=== PATIENT | male | born 1940 | race Caucasian/White ===

== ENCOUNTER 2023-06-29 10:01 | Inpatient (IN) | payer MEDICARE, OTHER ==
[2023-06-29] MEDS ORDERED: Acetaminophen 325 MG TAB PO PRN (17:16)
[2023-06-29] MEDS ORDERED: Ondansetron ODT 4 MG TAB SL PRN (17:16)
[2023-06-29] MEDS: Vancomycin HCl 125 MG Capsule PO SCH (18:28)
[2023-06-29] MEDS: Saccharomyces boulardii 250 MG CAP PO SCH (18:28)
[2023-06-29] MEDS: DorzolamidE/Timolol 2%/0.5% Ophth Soln 10 ml Bottle EA EYE SCH (21:28)
[2023-06-29] MEDS: Potassium Chloride 20 MEQ TAB PO SCH (21:28)
[2023-06-29] MEDS: Famotidine 20 MG TAB PO SCH (21:28)
[2023-06-29] MEDS: Atorvastatin Calcium 20 MG TAB PO SCH (21:28)
[2023-06-30] MEDS: Vancomycin HCl 125 MG Capsule PO SCH ×5 (00:01→23:54)
[2023-06-30] MEDS: Levothyroxine Sodium 75 MCG TAB PO SCH (05:18)
[2023-06-30 06:10] LABS: Glucose 89 mg/dL (83-110)
[2023-06-30 06:12] LABS: #Basophils 0.1 thou/uL (0.0-0.2); #Eosinphils 0.8 thou/uL (0.0-0.7); #Lymphocytes 2.4 thou/uL (1.20-3.40); #Neutrophils 4.4 thou/uL (1.40-6.50); %Basophils 0.8 % (0.0-1.0); %Eosinophils 9.2 % (0.0-10.0); %Lymphocytes 27.9 % (21.0-51.0); %Neutrophils 51.1 % (42.0-75.0); ALT (SGPT) 38 U/L (8-55); AST (SGOT) 24 U/L (5-34); Albumin 3.4 g/dL (3.4-4.8); Alkaline Phosphatase 72 U/L (40-110); Anion Gap 12 mmol/L (10-20); BUN (Urea Nitrogen) 19 mg/dL (8.4-25.7); Bilirubin, Total 0.2 mg/dL (0.2-1.2); Calc. Creatinine Clearance 53 mL/min (70-130); Calcium 9.2 mg/dL (7.8-10.44); Carbon Dioxide 22 mmol/L (23-31); Chloride 105 mmol/L (98-107); Estimated GFR 56; Globulin 3.3 g/dL (2.4-3.5); Hematocrit 40.1 % (42.0-52.0); Hemoglobin 13.1 g/dL (14.0-18.0); Mean Corpuscular HGB CONC 32.6 g/dL (32.0-36.0); Mean Corpuscular Hemoglobin 27.9 pg (27.0-31.0); Mean Corpuscular Volume 85.5 fl (78.0-98.0); Platelet Count 249 10x3/uL (130-400); Protein, Total 6.7 g/dL (5.8-8.1); RBC Distribution Width 13.5 % (11.5-14.5); Red Blood Cell (RBC) Count 4.69 mill/uL (4.70-6.10); Sodium 135 mmol/L (136-145); White Blood Cell (WBC) Count 8.6 10x3/uL (4.8-10.8)
[2023-06-30] MEDS: DorzolamidE/Timolol 2%/0.5% Ophth Soln 10 ml Bottle EA EYE SCH ×2 (07:56→20:45)
[2023-06-30] MEDS: Donepezil HCl 10 MG TAB PO SCH (07:56)
[2023-06-30] MEDS: Cholecalciferol 1,000 UNITS (25 MCG) TAB PO SCH (07:56)
[2023-06-30] MEDS: Enoxaparin 40 MG (0.4 mL) SYRINGE SC SCH (07:56)
[2023-06-30] MEDS: Sertraline 100 MG TAB PO SCH (07:57)
[2023-06-30] MEDS: Potassium Chloride 20 MEQ TAB PO SCH ×2 (07:57→20:44)
[2023-06-30] MEDS: Amlodipine 10 MG TAB PO SCH (07:57)
[2023-06-30] MEDS: Aspirin 81 mg Enteric Coated Tablet PO SCH (07:57)
[2023-06-30] MEDS: Losartan 25 MG TAB PO SCH (07:57)
[2023-06-30] MEDS: LevoFLOXacin 500 MG TAB PO SCH (07:58)
[2023-06-30] MEDS: Famotidine 20 MG TAB PO SCH ×2 (07:58→20:44)
[2023-06-30] MEDS: Saccharomyces boulardii 250 MG CAP PO SCH (17:10)
[2023-06-30] MEDS: Atorvastatin Calcium 20 MG TAB PO SCH (20:44)
[2023-07-01] MEDS: Vancomycin HCl 125 MG Capsule PO SCH ×3 (05:18→16:58)
[2023-07-01] MEDS: Levothyroxine Sodium 75 MCG TAB PO SCH (05:18)
[2023-07-01] MEDS: Cholecalciferol 1,000 UNITS (25 MCG) TAB PO SCH (09:01)
[2023-07-01] MEDS: Enoxaparin 40 MG (0.4 mL) SYRINGE SC SCH (09:01)
[2023-07-01] MEDS: Losartan 25 MG TAB PO SCH (09:02)
[2023-07-01] MEDS: Amlodipine 10 MG TAB PO SCH (09:02)
[2023-07-01] MEDS: LevoFLOXacin 500 MG TAB PO SCH (09:02)
[2023-07-01] MEDS: Aspirin 81 mg Enteric Coated Tablet PO SCH (09:02)
[2023-07-01] MEDS: Famotidine 20 MG TAB PO SCH ×2 (09:02→20:53)
[2023-07-01] MEDS: Donepezil HCl 10 MG TAB PO SCH (09:02)
[2023-07-01] MEDS: DorzolamidE/Timolol 2%/0.5% Ophth Soln 10 ml Bottle EA EYE SCH ×2 (09:03→20:53)
[2023-07-01] MEDS: Potassium Chloride 20 MEQ TAB PO SCH ×2 (09:03→20:53)
[2023-07-01] MEDS: Sertraline 100 MG TAB PO SCH (09:03)
[2023-07-01] MEDS: Saccharomyces boulardii 250 MG CAP PO SCH (16:58)
[2023-07-01] MEDS: Atorvastatin Calcium 20 MG TAB PO SCH (20:53)
[2023-07-02] MEDS: Vancomycin HCl 125 MG Capsule PO SCH ×5 (00:15→23:24)
[2023-07-02] MEDS: Levothyroxine Sodium 75 MCG TAB PO SCH (05:23)
[2023-07-02] MEDS: Enoxaparin 40 MG (0.4 mL) SYRINGE SC SCH (09:12)
[2023-07-02] MEDS: Losartan 25 MG TAB PO SCH (09:13)
[2023-07-02] MEDS: Famotidine 20 MG TAB PO SCH ×2 (09:13→20:53)
[2023-07-02] MEDS: Amlodipine 10 MG TAB PO SCH (09:13)
[2023-07-02] MEDS: Cholecalciferol 1,000 UNITS (25 MCG) TAB PO SCH (09:13)
[2023-07-02] MEDS: Aspirin 81 mg Enteric Coated Tablet PO SCH (09:13)
[2023-07-02] MEDS: LevoFLOXacin 500 MG TAB PO SCH (09:13)
[2023-07-02] MEDS: Sertraline 100 MG TAB PO SCH (09:13)
[2023-07-02] MEDS: Donepezil HCl 10 MG TAB PO SCH (09:13)
[2023-07-02] MEDS: Potassium Chloride 20 MEQ TAB PO SCH ×2 (09:14→20:53)
[2023-07-02] MEDS: DorzolamidE/Timolol 2%/0.5% Ophth Soln 10 ml Bottle EA EYE SCH ×2 (09:14→20:53)
[2023-07-02] MEDS: Saccharomyces boulardii 250 MG CAP PO SCH (17:31)
[2023-07-02] MEDS: Atorvastatin Calcium 20 MG TAB PO SCH (20:56)
[2023-07-03 04:16] VITALS: BMI 28.7
[2023-07-03] MEDS: Levothyroxine Sodium 75 MCG TAB PO SCH (05:11)
[2023-07-03] MEDS: Losartan 25 MG TAB PO SCH (08:30)
[2023-07-03] MEDS: Enoxaparin 40 MG (0.4 mL) SYRINGE SC SCH (09:00)
[2023-07-03] MEDS: Cholecalciferol 1,000 UNITS (25 MCG) TAB PO SCH (09:02)
[2023-07-03] MEDS: Potassium Chloride 20 MEQ TAB PO SCH ×2 (09:02→21:12)
[2023-07-03] MEDS: Famotidine 20 MG TAB PO SCH ×2 (09:04→21:12)
[2023-07-03] MEDS: Aspirin 81 mg Enteric Coated Tablet PO SCH (09:04)
[2023-07-03] MEDS: Sertraline 100 MG TAB PO SCH (09:04)
[2023-07-03] MEDS: Donepezil HCl 10 MG TAB PO SCH (09:04)
[2023-07-03] MEDS: Vancomycin HCl 125 MG Capsule PO SCH ×2 (09:04→21:13)
[2023-07-03] MEDS: DorzolamidE/Timolol 2%/0.5% Ophth Soln 10 ml Bottle EA EYE SCH ×2 (09:05→21:15)
[2023-07-03] MEDS: Amlodipine 10 MG TAB PO SCH (09:09)
[2023-07-03] MEDS: Saccharomyces boulardii 250 MG CAP PO SCH (17:43)
[2023-07-03] MEDS: Atorvastatin Calcium 20 MG TAB PO SCH (21:14)
[2023-07-04] MEDS: Levothyroxine Sodium 75 MCG TAB PO SCH (06:21)
[2023-07-04] MEDS: Cholecalciferol 1,000 UNITS (25 MCG) TAB PO SCH (08:29)
[2023-07-04] MEDS: Losartan 25 MG TAB PO SCH (08:29)
[2023-07-04] MEDS: Sertraline 100 MG TAB PO SCH (08:29)
[2023-07-04] MEDS: Amlodipine 10 MG TAB PO SCH (08:29)
[2023-07-04] MEDS: Potassium Chloride 20 MEQ TAB PO SCH ×2 (08:29→20:41)
[2023-07-04] MEDS: Enoxaparin 40 MG (0.4 mL) SYRINGE SC SCH (08:29)
[2023-07-04] MEDS: DorzolamidE/Timolol 2%/0.5% Ophth Soln 10 ml Bottle EA EYE SCH ×2 (08:29→20:41)
[2023-07-04] MEDS: Donepezil HCl 10 MG TAB PO SCH (08:29)
[2023-07-04] MEDS: Vancomycin HCl 125 MG Capsule PO SCH ×2 (08:30→20:40)
[2023-07-04] MEDS: Aspirin 81 mg Enteric Coated Tablet PO SCH (08:30)
[2023-07-04] MEDS: Famotidine 20 MG TAB PO SCH ×2 (08:30→20:40)
[2023-07-04] MEDS: Saccharomyces boulardii 250 MG CAP PO SCH (17:12)
[2023-07-04] MEDS: Atorvastatin Calcium 20 MG TAB PO SCH (20:40)
[2023-07-05 06:00] LABS: #Lymphocytes 2.7 thou/uL (1.20-3.40); #Monocytes 0.8 thou/uL (0.11-0.59); #Neutrophils 6.5 thou/uL (1.40-6.50); %Basophils 0.4 % (0.0-1.0); %Lymphocytes 24.5 % (21.0-51.0); %Neutrophils 59.1 % (42.0-75.0); Hematocrit 39.5 % (42.0-52.0); Hemoglobin 12.8 g/dL (14.0-18.0); Mean Corpuscular HGB CONC 32.4 g/dL (32.0-36.0); Mean Corpuscular Hemoglobin 27.8 pg (27.0-31.0); Mean Corpuscular Volume 85.9 fl (78.0-98.0); Mean Platelet Volume 7.1 fL (7.4-10.4); Platelet Count 245 10x3/uL (130-400); RBC Distribution Width 13.8 % (11.5-14.5)
[2023-07-05 06:55] LABS: Chloride 107 mmol/L (98-107); Potassium 4.1 mmol/L (3.5-5.1); Sodium 135 mmol/L (136-145)
[2023-07-05 06:56] LABS: BUN (Urea Nitrogen) 22 mg/dL (8.4-25.7); Carbon Dioxide 20 mmol/L (23-31)
[2023-07-05 06:57] LABS: Calc. Creatinine Clearance 60 mL/min (70-130); Calcium 9.2 mg/dL (7.6-10.4); Estimated GFR 62; Glucose 88 mg/dL (83-110)
[2023-07-05 06:58] LABS: Anion Gap 12 mmol/L (10-20)
[2023-07-05] MEDS: Amlodipine 10 MG TAB PO SCH (16:51)
[2023-07-05] MEDS: Aspirin 81 mg Enteric Coated Tablet PO SCH (16:52)
[2023-07-05] MEDS: DorzolamidE/Timolol 2%/0.5% Ophth Soln 10 ml Bottle EA EYE SCH ×2 (16:53→20:40)
[2023-07-05] MEDS: Cholecalciferol 1,000 UNITS (25 MCG) TAB PO SCH (16:53)
[2023-07-05] MEDS: Donepezil HCl 10 MG TAB PO SCH (16:53)
[2023-07-05] MEDS: Enoxaparin 40 MG (0.4 mL) SYRINGE SC SCH (16:54)
[2023-07-05] MEDS: Famotidine 20 MG TAB PO SCH ×2 (16:54→20:40)
[2023-07-05] MEDS: Losartan 25 MG TAB PO SCH (16:56)
[2023-07-05] MEDS: Sertraline 100 MG TAB PO SCH (16:56)
[2023-07-05] MEDS: Potassium Chloride 20 MEQ TAB PO SCH ×2 (16:56→20:40)
[2023-07-05] MEDS: Vancomycin HCl 125 MG Capsule PO SCH ×2 (16:57→20:40)
[2023-07-05] MEDS: Saccharomyces boulardii 250 MG CAP PO SCH (17:36)
[2023-07-05] MEDS: Levothyroxine Sodium 75 MCG TAB PO SCH (19:34)
[2023-07-05] MEDS: Atorvastatin Calcium 20 MG TAB PO SCH (20:39)
[2023-07-06] MEDS: Levothyroxine Sodium 75 MCG TAB PO SCH (05:16)
[2023-07-06] MEDS: Donepezil HCl 10 MG TAB PO SCH (09:13)
[2023-07-06] MEDS: Potassium Chloride 20 MEQ TAB PO SCH ×2 (09:13→20:05)
[2023-07-06] MEDS: Cholecalciferol 1,000 UNITS (25 MCG) TAB PO SCH (09:13)
[2023-07-06] MEDS: Losartan 25 MG TAB PO SCH (09:13)
[2023-07-06] MEDS: Aspirin 81 mg Enteric Coated Tablet PO SCH (09:14)
[2023-07-06] MEDS: Amlodipine 10 MG TAB PO SCH (09:14)
[2023-07-06] MEDS: Sertraline 100 MG TAB PO SCH (09:14)
[2023-07-06] MEDS: Famotidine 20 MG TAB PO SCH ×2 (09:14→20:05)
[2023-07-06] MEDS: Enoxaparin 40 MG (0.4 mL) SYRINGE SC SCH (09:14)
[2023-07-06] MEDS: Vancomycin HCl 125 MG Capsule PO SCH ×2 (09:14→20:05)
[2023-07-06] MEDS: DorzolamidE/Timolol 2%/0.5% Ophth Soln 10 ml Bottle EA EYE SCH ×2 (09:29→20:12)
[2023-07-06] MEDS: Saccharomyces boulardii 250 MG CAP PO SCH (17:02)
[2023-07-06] MEDS: Atorvastatin Calcium 20 MG TAB PO SCH (20:07)
[2023-07-07] MEDS: Levothyroxine Sodium 75 MCG TAB PO SCH (05:57)
[2023-07-07] MEDS: Enoxaparin 40 MG (0.4 mL) SYRINGE SC SCH (08:40)
[2023-07-07] MEDS: Aspirin 81 mg Enteric Coated Tablet PO SCH (08:41)
[2023-07-07] MEDS: Sertraline 100 MG TAB PO SCH (08:41)
[2023-07-07] MEDS: Hydrochlorothiazide 25 MG TAB PO SCH (08:41)
[2023-07-07] MEDS: Losartan 25 MG TAB PO SCH (08:42)
[2023-07-07] MEDS: Famotidine 20 MG TAB PO SCH ×2 (08:42→20:39)
[2023-07-07] MEDS: Donepezil HCl 10 MG TAB PO SCH (08:42)
[2023-07-07] MEDS: Amlodipine 10 MG TAB PO SCH (08:42)
[2023-07-07] MEDS: Cholecalciferol 1,000 UNITS (25 MCG) TAB PO SCH (08:42)
[2023-07-07] MEDS: Potassium Chloride 20 MEQ TAB PO SCH ×2 (08:43→20:39)
[2023-07-07] MEDS: DorzolamidE/Timolol 2%/0.5% Ophth Soln 10 ml Bottle EA EYE SCH ×2 (08:44→20:39)
[2023-07-07] MEDS: Vancomycin HCl 125 MG Capsule PO SCH ×2 (08:47→20:39)
[2023-07-07] MEDS: Saccharomyces boulardii 250 MG CAP PO SCH (17:20)
[2023-07-07] MEDS: Atorvastatin Calcium 20 MG TAB PO SCH (20:39)
[2023-07-08] MEDS: Levothyroxine Sodium 75 MCG TAB PO SCH (06:17)
[2023-07-08 08:18] VITALS: TEMP 97.9
[2023-07-08] MEDS: Cholecalciferol 1,000 UNITS (25 MCG) TAB PO SCH (08:46)
[2023-07-08] MEDS: Losartan 25 MG TAB PO SCH (08:46)
[2023-07-08] MEDS: Sertraline 100 MG TAB PO SCH (08:46)
[2023-07-08] MEDS: Enoxaparin 40 MG (0.4 mL) SYRINGE SC SCH (08:46)
[2023-07-08] MEDS: Amlodipine 10 MG TAB PO SCH (08:46)
[2023-07-08] MEDS: Donepezil HCl 10 MG TAB PO SCH (08:47)
[2023-07-08] MEDS: Hydrochlorothiazide 25 MG TAB PO SCH (08:47)
[2023-07-08] MEDS: Famotidine 20 MG TAB PO SCH (08:47)
[2023-07-08] MEDS: Vancomycin HCl 125 MG Capsule PO SCH (08:47)
[2023-07-08] MEDS: Aspirin 81 mg Enteric Coated Tablet PO SCH (08:47)
[2023-07-08] MEDS: Potassium Chloride 20 MEQ TAB PO SCH (08:47)
[2023-07-08 08:48] VITALS: BP 123/73
[2023-07-08] MEDS: DorzolamidE/Timolol 2%/0.5% Ophth Soln 10 ml Bottle EA EYE SCH (08:48)
[2023-07-10] MEDS ORDERED: Vancomycin HCl 125 MG Capsule PO SCH (09:00)
== END 2023-07-08 14:15 | DRG 948 ==
LOC: NAV ACUTE 17:42
PROVIDERS: ADMIT Family Medicine; ATTEND Family Medicine
DX: R53.81 Other malaise (principal); A04.72 Enterocolitis due to Clostridium difficile, not specified as recurrent; N30.90 Cystitis, unspecified without hematuria; B96.1 Klebsiella pneumoniae [K. pneumoniae] as the cause of diseases classified elsewhere; E78.5 Hyperlipidemia, unspecified; F03.90 Unspecified dementia, unspecified severity, without behavioral disturbance, psychotic disturbance, mood disturbance, and anxiety; E03.9 Hypothyroidism, unspecified; Z66 Do not resuscitate; N40.1 Benign prostatic hyperplasia with lower urinary tract symptoms; Z79.82 Long term (current) use of aspirin; Z79.899 Other long term (current) drug therapy; H40.9 Unspecified glaucoma; Z86.73 Personal history of transient ischemic attack (TIA), and cerebral infarction without residual deficits; N18.9 Chronic kidney disease, unspecified; I25.10 Atherosclerotic heart disease of native coronary artery without angina pectoris; I12.9 Hypertensive chronic kidney disease with stage 1 through stage 4 chronic kidney disease, or unspecified chronic kidney disease; Z90.49 Acquired absence of other specified parts of digestive tract; Z95.5 Presence of coronary angioplasty implant and graft
CPT/HCPCS: 36415; 80048; 80053; 85025; J1650